=== PATIENT | female | born 1955 | race Caucasian/White ===

== ENCOUNTER 2021-08-31 13:51 | Observation (INO) | payer BC, MEDICARE ==
[~2021-08-31] VITALS: Ht 167.6 cm; Wt 96.2 kg
[2021-08-31 15:24] LABS: RED BLOOD COUNT 5.63 M/UL (4.00-5.10)
[2021-09-01 05:58] LABS: WHITE BLOOD COUNT 13.7 K/UL (4.5-11.0)
[2021-09-01 05:59] LABS: HEMOGLOBIN 13.9 gm/dl (12.3-15.3); RED BLOOD COUNT 4.87 M/UL (4.00-5.10)
[2021-09-01 10:32] LABS: HEMOGLOBIN 14.7 gm/dl (12.3-15.3); RED BLOOD COUNT 5.19 M/UL (4.00-5.10)
[2021-09-02 15:04] LABS: HEMOGLOBIN 13.6 gm/dl (12.3-15.3); RED BLOOD COUNT 4.82 M/UL (4.00-5.10)
[2021-09-02 15:06] LABS: WHITE BLOOD COUNT 8.7 K/UL (4.5-11.0)
[2021-09-03 04:15] LABS: HEMOGLOBIN 14.1 gm/dl (12.3-15.3); RED BLOOD COUNT 5.01 M/UL (4.00-5.10); WHITE BLOOD COUNT 6.9 K/UL (4.5-11.0)
[2021-09-03 05:11] LABS: BUN/CREATININE RATIO 53 (0-10)
[2021-09-04] MEDS ORDERED: GLUCOPHAGE 850850 MG PO (09:07)
[2021-09-04] MEDS ORDERED: METOPROLOL SUCC25 MG PO (09:07)
[2021-09-04] MEDS ORDERED: PROTONIX40 MG PO (09:09)
== END 2021-09-04 10:29 | disposition home or self-care (01) ==
LOC: ER1 13:51 → CDU 09-02 16:40 → CCU 09-03 14:32
PROVIDERS: Emergency Medicine; Physician Assistant Medical; ADMIT Internal Medicine Infectious Disease
DX: E11.10 Type 2 diabetes mellitus with ketoacidosis without coma (principal); Z20.822 Contact with and (suspected) exposure to COVID-19; N17.0 Acute kidney failure with tubular necrosis; E86.0 Dehydration; R74.8 Abnormal levels of other serum enzymes; I10 Essential (primary) hypertension; R00.0 Tachycardia, unspecified; K92.0 Hematemesis; Z79.84 Long term (current) use of oral hypoglycemic drugs; Z79.899 Other long term (current) drug therapy; Z91.19 Patient's noncompliance with other medical treatment and regimen; Z88.0 Allergy status to penicillin; Z88.1 Allergy status to other antibiotic agents
CPT/HCPCS: 0241U; 36415; 80048; 80053; 82009; 82550; 82553; 82962; 83036; 83690; 83735; 83874; 84443; 84484; 85025; 93005; 96372; 96374; 96375; 96376; 99285; C9113; G0378; J1170; J1650; J2270; J2405; J7030